=== PATIENT | male | born 1975 | race Caucasian/White ===

== ENCOUNTER 2017-03-19 12:25 | Emergency (ER) | payer BC ==
--- NOTE | 2017-03-19 12:30 | ED ---
General Adult HPI - General Stated complaint: Back Pain Time Seen by Provider: 03/19/17 12:27 Source: RN notes reviewed, old records reviewed - History of Present Illness Initial comments: This is a 41-year-old male here for evaluation of back injury. Patient had no traumatic back injury but is doing with severe back pain for a few days now. 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 No reported medical history. Patient states that he had some back pain while wearing some gear but 4 days ago the pain was worse for 2 days with the primary can walk. Patient denies loss of bowel or bladder, is able to bear his weight. Pain with range of motion - Related Data Previous Rx's Medication Instructions Recorded Hydrocodone/Acetaminophen [[place] 1 each PO Q6HR PRN #25 tab 04/23/15 5-325] Allergies Allergy/AdvReac Type Severity Reaction Status Date / Time No Known Allergies Allergy Verified 04/23/15 09:24 Review of Systems ROS Statement: Those systems with pertinent positive or pertinent negative responses have been documented in the HPI. ROS Other: All systems not noted in ROS Statement are negative. Past Medical History Past Medical History: No Reported History History of Any Multi-Drug Resistant Organisms: None Reported Past Surgical History: Orthopedic Surgery Past Psychological History: No Psychological Hx Reported Smoking Status: Former smoker Past Alcohol Use History: None Reported Past Drug Use History: None Reported General Exam General appearance: alert, in no apparent distress Head exam: Present: atraumatic, normocephalic, normal inspection Eye exam: Present: normal appearance, PERRL, EOMI. Absent: scleral icterus, conjunctival injection, periorbital swelling ENT exam: Present: normal exam, mucous membranes moist Neck exam: Present: normal inspection. Absent: tenderness, meningismus, lymphadenopathy Respiratory exam: Present: normal lung sounds bilaterally. Absent: respiratory distress, wheezes, rales, rhonchi, stridor Cardiovascular Exam: Present: regular rate, normal rhythm, normal heart sounds. Absent: systolic murmur, diastolic murmur, rubs, gallop, clicks GI/Abdominal exam: Present: soft, normal bowel sounds. Absent: distended, tenderness, guarding, rebound, rigid Extremities exam: Present: normal inspection, full ROM, normal capillary refill. Absent: tenderness, pedal edema, joint swelling, calf tenderness Back exam: Present: normal inspection, other (Midline tenderness around L5, decreased range of motion, right sacroiliac stock) Neurological exam: Present: alert, oriented X3, CN II-XII intact Psychiatric exam: Present: normal affect, normal mood Skin exam: Present: warm, dry, intact, normal color. Absent: rash Course Vital Signs 03/19/17 12:28 Temperature 100 F H Pulse Rate 98 Respiratory 18 Rate Blood Pressure 133/59 O2 Sat by Pulse 93 L Oximetry - Reevaluation(s) Reevaluation #1: 03/19/17 13:22 Patient's pain this time is improved greatly, able to ambulate Medical Decision Making - Medical Decision Making 41 male here for evaluation of back pain, musculoskeletal back pain with history of back disease. Degenerative disc disease. Patient will follow-up with orthopedics as directed Disposition Clinical Impression: Strain of lumbar region, Sciatica, Degeneration of intervertebral disc Disposition: HOME SELF-CARE Condition: Good Instructions: Acute Low Back Pain (ED), Chronic Back Pain (ED) Referrals: Jillian Sanchez DO [Doctor of Osteopathic Medicine] - 1-2 days
[2017-03-19 12:33] VITALS: RESP 18
[2017-03-19] MEDS ORDERED: DIAZEPAM 5 MG TAB PO STA (12:42)
[2017-03-19] MEDS ORDERED: HYDROcodone/APAP 5-325MG 1 EACH TAB PO STA (12:42)
[2017-03-19] MEDS ORDERED: KETOROLAC 60 MG/2 ML VIAL IM STA (12:42)
[2017-03-19] MEDS ORDERED: predniSONE 20 MG TAB PO STA (12:43)
--- NOTE | 2017-03-19 13:00 | XR ---
EXAM TYPE: LUMBAR SPINE X RAY SERIES COMPARISON: NONE HISTORY: 08/06/2016 TECHNIQUE: 4 views are submitted. FINDINGS: Alignment is anatomic. The pedicles are intact. The transverse processes are intact. There is no spon dylolysis or spondylolisthesis. Hypertrophic spurs are seen at L4 with facet arthropathy L4- L5 and L 5-S1. Mild degenerative disc disease L5-S1. IMPRESSION: 1. Mild degenerative disc disease L5-S1 with hypertrophic changes. 2. Facet arthropathy. Findings stable previous. Consider follow-up MRI.
[2017-03-19] MEDS ORDERED: HYDROmorphone 2 MG/ML 1 ML SYRINGE IM STA (13:25)
[2017-03-19 13:48] VITALS: BP 132/63; PULSE 92; TEMP 99.2
== END 2017-03-19 13:49 | disposition home or self-care (01) ==
LOC: EC 12:25
DX: S39.012A Strain of muscle, fascia and tendon of lower back, initial encounter (principal); M51.36 Other intervertebral disc degeneration, lumbar region; Z87.891 Personal history of nicotine dependence; X58.XXXA Exposure to other specified factors, initial encounter
CPT/HCPCS: 72110; 99284; 96372 ×2; J1170; J1885; J7512

== ENCOUNTER → 2023-07-09 | Outpatient (CLI) | payer BC ==
--- NOTE | 2023-07-10 10:06 | CT ---
EXAMINATION TYPE: CT ChestAbdPelvis w con DATE OF EXAM: 07/09/2023 COMPARISON: None HISTORY: Diagnosed with neoplasm of rectum several weeks ago. Observe for mets CT DLP: 2025.70 mGycm Automated exposure control for dose reduction was used. CONTRAST: CT scan of the chest, abdomen and pelvis is performed with Oral Contrast and with IV Contrast, patien t injected with 100 mL of Isovue 300. FINDINGS: LUNGS: Linear subsegmental changes are seen in the left upper lobe mass typical of scar or atelectasi s. There is no evidence of consolidative pneumonia. No pneumothorax or pleural effusion. No sizable p ulmonary nodule.. There is no pleural effusion or pneumothorax seen. The tracheobronchial tree is patent. MEDIASTINUM: There are no greater than 1 cm hilar or mediastinal lymph nodes. No pericardial effusi on is seen. There is a small hiatal hernia. OTHER: No additional significant abnormality is seen. LIVER/GB: Correlate for hepatic steatosis. PANCREAS: Within the pancreatic body on image 60 series 3 there is a hypodense lesion. Recommend MRI of the abdomen measures 8.5 mm is noted and coronal image 41. SPLEEN: No significant abnormality is seen. ADRENALS: No significant abnormality is seen. KIDNEYS: No hydronephrosis. Subcentimeter hypodensity left mid to lower pole renal cortex too small t o characterize. BOWEL: Mild wall thickening in the rectum may correspond to the patient's reported history of rectal cancer. Appendix normal. No evidence of bowel obstruction. REPRODUCTIVE ORGANS: Prostate gland is enlarged. LYMPH NODES: No greater than 1 cm abdominal or pelvic lymph nodes are appreciated. OSSEOUS STRUCTURES: Hypertrophic and degenerative changes of the spine right paracentral disc bulging L5-S1. OTHER: Aorta of normal caliber. Prostate gland appears enlarged. IMPRESSION: 1. Mild rectal wall thickening likely corresponds to the patient's history of rectal neoplasm. No pat hologic adenopathy. No evidence of intrathoracic metastases. 2. There is an 8.5 mm pancreatic body lesion too small to characterize. Recommend MRI of the pancreas \abdomen for further evaluation
== END | disposition home or self-care (01) ==
LOC: RADCTMAIN 14:02
PROVIDERS: ATTEND Surgery
DX: C20 Malignant neoplasm of rectum (principal); K86.89 Other specified diseases of pancreas; K62.89 Other specified diseases of anus and rectum
CPT/HCPCS: 71260; 74177; Q9967

== ENCOUNTER → 2023-07-22 | Outpatient (CLI) | payer BC | END | disposition home or self-care (01) | LOC: LABWHC1 12:33 | PROVIDERS: ATTEND Surgery | DX: C20 Malignant neoplasm of rectum (principal) | CPT/HCPCS: 36415; 82378 ==

== ENCOUNTER → 2023-07-31 | Outpatient (CLI) | payer BC ==
--- NOTE | 2023-07-31 12:20 | P.SLEEP ---
History of Present Illness DATE: 07/31/2023 CONSULTATION/NEW PATIENT EVALUATION HISTORY OF PRESENT ILLNESS/SLEEP-WAKE EVALUATION: 48-year-old gentleman had been evaluated in the sleep center for possible obstructive sleep apnea hypopnea syndrome. SLEEP SCHEDULE: Usually sleep schedule from 11 AM to 4 PM on weekdays and from 8 PM to 4 AM on weekend. Patient is working at shift leader. FALLING ASLEEP: Sometimes patient has problems with falling asleep. DURING SLEEP: Patient has loud snoring and witnessed episodes of stop breathing during the sleep by his . He wakes up from sleep with nocturia up to 3 times No history of hypnogogical hallucinations, sleep paralysis, or cataplexy. DURING THE DAY/WAKE STATE: During the day patient has difficulties to concentrate. [place] sleepiness scale is 4. Usually patient doesn't take any additional naps. PAST MEDICAL HISTORY: Hyperlipidemia, migraines. PAST SURGICAL HISTORY: Left shoulder surgery, vasectomy. MEDICATIONS: Atorvastatin 20 mg once a day, Tamsulosin 0.4 mg once a day. SOCIAL HISTORY Positive history of smoking for about 25 years presently half pack a day, no alcohol consumption at the present time. FAMILY HISTORY Liver problems, diabetes. REVIEW OF SYSTEMS: Loud snoring, multiple awakenings from sleep with nocturia. No fevers. No double vision. No recent chest pain. No shortness of breath. No abdominal pain. No bleeding episodes. No blood in urine. No seizure episodes. PHYSICAL EXAMINATION: GENERAL: A pleasant patient without any distress. VITAL SIGNS: BP 125/82 , HR 76 , RR 12 , weight 230.8 pounds, height 5 foot 9 inches, body mass index 33.9 . HEENT: PERRLA, EOMI. Evaluation of oropharynx showed tongue protrudes midline, low position of soft palate Mallampati 4. NECK: Supple. No JVD. Thyroid is not palpable. 17 inches in circumference. LUNGS: Clear to percussion and to auscultation. Good air exchange. No wheezing or rhonchi. HEART: S1, S2 regular. No murmurs, gallops or rubs. ABDOMEN: Soft and nontender. Bowel sounds are present. No organomegaly appreciated. EXTREMITIES: No clubbing or cyanosis. BARTENDER SERVER: Awake, alert, and oriented x3. Cranial nerves 2 to 7 intact. There is no fasciculation or atrophy noted. No focal deficits observed. ASSESSMENT: 1. Loud snoring, witnessed episodes of stop breathing during the sleep, extremely low position of soft palate Mallampati 4, wide neck 17 inches in circumference. Obstructive sleep apnea-hypopnea syndrome. 2. Mild obesity body mass index 33.9. 3. Hyperlipidemia. 4. BPH. 5 History of migraines. 6 . Status post left shoulder surgery. 7. Status post vasectomy. PLAN: 1. Home sleep apnea test for evaluation of patient's breathing during sleep. 2. CPAP/BiPAP titration if sleep study confirms obstructive sleep apnea- hypopnea syndrome. 3. Preferable position during sleep on the side. 4. No driving if patient feels any sleepiness. Patient is aware of civil and criminal liability for unsafe driving. 5. Sleep hygiene with regular sleep time for at least 7.5-8 hours. 6. Watching and losing weight. Thank you very much for referring this patient for consultation. Sincerely, Kris Tiwari MD, PhD, FAASM. Diplomat of [employer], Sleep Medicine Board by [employer] Director Of Recruitment of [facility] [place] Past Medical History Past Medical History: No Reported History History of Any Multi-Drug Resistant Organisms: None Reported Past Surgical History: Orthopedic Surgery Past Psychological History: No Psychological Hx Reported Past Alcohol Use History: None Reported Past Drug Use History: None Reported Medications and Allergies Home Medications Medication Instructions Recorded Confirmed Type Hydrocodone/Acetaminophen [[place] 1 tab PO Q4HR PRN #30 tab 03/19/17 Rx 5-325] Naproxen [Naprosyn] 500 mg PO Q12HR #60 tab 03/19/17 Rx diazePAM [Valium] 5 mg PO HS #20 tab 03/19/17 Rx predniSONE 50 mg PO DAILY #5 tab 03/19/17 Rx Allergies Allergy/AdvReac Type Severity Reaction Status Date / Time No Known Allergies Allergy Verified 03/19/17 13:38 Sleep Note - Sleep Note Sleep Note: Temperature: Pulse Rate: Respiratory Rate: Blood Pressure: SpO2: Height: Weight: BMI: Neck Circumference:
== END ==
LOC: 3 N SLEEP 10:18
PROVIDERS: ATTEND Internal Medicine
DX: G47.33 Obstructive sleep apnea (adult) (pediatric) (principal); E66.9 Obesity, unspecified; E78.5 Hyperlipidemia, unspecified; N40.0 Benign prostatic hyperplasia without lower urinary tract symptoms; F17.210 Nicotine dependence, cigarettes, uncomplicated; Z86.69 Personal history of other diseases of the nervous system and sense organs; Z98.890 Other specified postprocedural states; Z90.89 Acquired absence of other organs; Z68.33 Body mass index [BMI] 33.0-33.9, adult
CPT/HCPCS: 99211

== ENCOUNTER → 2023-08-30 | Outpatient (CLI) | payer BC | LOC: 3 N SLEEP 11:16 | PROVIDERS: ATTEND Internal Medicine | DX: G47.33 Obstructive sleep apnea (adult) (pediatric) (principal); Z87.891 Personal history of nicotine dependence ==

== ENCOUNTER 2024-10-27 12:49 | Day surgery (SDC) | payer BC ==
[2024-10-21 15:30] VITALS: BMI 33.0
[2024-10-27 13:09] VITALS: TEMP 97.7
[2024-10-27] MEDS: LACTATED RINGERS 1,000 ML IV SCH (13:16)
[2024-10-27] MEDS: IV FLUID CONTINUATION 1,000 ML IV ONE (13:16)
[2024-10-27] MEDS ORDERED: PROPOFOL 10 MG/ML 20 ML VIAL IV ONE (13:20)
[2024-10-27] MEDS ORDERED: LIDOCAINE 1% INJ 10MG/ML (20 ML MDV) ONE (13:20)
--- NOTE | 2024-10-27 13:27 | P.GSHP ---
History of Present Illness H&P Date: 10/27/24 Chief Complaint: History of colon cancer 49-year-old male here for colonoscopy. Last colonoscopy was a bit over a year ago. He was found to have a malignant polyp in the rectosigmoid. Underwent laparoscopic resection at [facility]. Doing well since then. Here today for follow-up recheck. Past Medical History Past Medical History: Cancer, Hyperlipidemia Additional Past Medical History / Comment(s): migraines, colon cancer History of Any Multi-Drug Resistant Organisms: None Reported Past Surgical History: Bowel Resection, Orthopedic Surgery Additional Past Surgical History / Comment(s): colonoscopy, polyps, Past Anesthesia/Blood Transfusion Reactions: No Reported Reaction Additional Past Anesthesia/Blood Transfusion Reaction / Comment(s): no blood transfusion Smoking Status: Current every day smoker - Past Family History Mother Family Medical History: Cancer Additional Family Medical History / Comment(s): breast Medications and Allergies Home Medications Medication Instructions Recorded Confirmed Type Atorvastatin [Lipitor] 20 mg PO HS 10/21/24 10/27/24 History Rimegepant Sulfate [Nurtec Odt] 75 mg PO DIRECTED 10/21/24 10/27/24 History Tamsulosin [Flomax] 0.4 mg PO HS 10/21/24 10/27/24 History Varenicline [Chantix Starter Pack] 1 tab PO DIRECTED 10/21/24 10/27/24 History Allergies Allergy/AdvReac Type Severity Reaction Status Date / Time No Known Allergies Allergy Verified 10/27/24 13:07 Surgical - Exam Vital Signs Temp Pulse Resp BP Pulse Ox 97.7 F 74 18 159/59 97 10/27/24 13:08 10/27/24 13:08 10/27/24 13:08 10/27/24 13:08 10/27/24 13:08 Physical exam: General: Well-developed, well-nourished HEENT: Normocephalic, sclerae nonicteric Abdomen: Nontender, nondistended Extremities: No edema Neuro: Alert and oriented Assessment and Plan (1) History of colon cancer Narrative/Plan: Will proceed with colonoscopy at this time. Current Visit: Yes Status: Acute Code(s): Z85.038 - PERSONAL HISTORY OF MALIGNANT NEOPLASM OF LARGE INTESTINE SNOMED Code(s): 478770632
--- NOTE | 2024-10-27 13:38 | P.PCN ---
Date of Procedure: 10/27/24 Procedure(s) Performed: PREOPERATIVE DIAGNOSIS: History of colon cancer POSTOPERATIVE DIAGNOSIS: Normal exam however poor prep PROCEDURE: Colonoscopy ANESTHESIA: MAC SURGEON: Roland Workman M.D. SPECIMENS: None ENDOSCOPIC PROCEDURE: The patient was placed on the endoscopy table in the left decubitus position. The Olympus colonoscope was inserted into the anus and passed under direct visualization to the base of the cecum. The appendiceal orifice was visualized. From that point the scope was slowly withdrawn inspecting all surfaces carefully. There were no neoplastic inflammatory or polypoid lesions throughout the cecum, ascending, transverse, descending, and rectum. The colorectal anastomosis was widely patent. The patient's prep was poor with some solid and liquid stool throughout. Grossly visualization was limited. There was no visible diverticulosis noted. Digital rectal examination was normal. The patient was taken to the recovery room in stable condition per anesthesia guidelines. RECOMMENDATIONS: Resume diet. Repeat colonoscopy 1 year given the patient's poor prep and personal history of colon cancer.
[2024-10-27 13:53] VITALS: PULSE 83; RESP 16
[2024-10-27 13:58] VITALS: BP 99/64
== END 2024-10-27 14:17 | disposition home or self-care (01) ==
LOC: ORWHC2ENDO 12:49
PROVIDERS: ATTEND Surgery
DX: Z08 Encounter for follow-up examination after completed treatment for malignant neoplasm (principal); Z85.038 Personal history of other malignant neoplasm of large intestine; Z90.49 Acquired absence of other specified parts of digestive tract; E78.5 Hyperlipidemia, unspecified; G43.909 Migraine, unspecified, not intractable, without status migrainosus; F17.210 Nicotine dependence, cigarettes, uncomplicated; Z98.890 Other specified postprocedural states; Z79.899 Other long term (current) drug therapy; Z98.52 Vasectomy status
CPT/HCPCS: 45378; J2003; J2704

== ENCOUNTER → 2025-01-28 | Outpatient (CLI) | payer BC ==
[2025-01-28 17:19] VITALS: BP 122/77; PULSE 70; RESP 16; TEMP 98
--- NOTE | 2025-01-28 18:03 | P.PROGSL ---
Subjective DATE: 01/28/2025 FOLLOW UP VISIT. Patient with obstructive sleep apnea hypopnea syndrome return to sleep center for follow-up visit. Information from previous visit have been reviewed. This is first visit after patient started to use CPAP equipment. Patient is using PAP equipment most of the nights. Presently patient has discomfort in the nose secondary to irritation from nasal mask. [place] sleepiness scale is 7, which is in normal range. I checked information from PAP unit. PAP unit pressure 5-14 cm H2O. Leak is 1 l/m, which is in perfect range. Apnea Hypopnea Index is 2.1, which is normal. MEDICATIONS have been reviewed, please see below. During physical exam: GENERAL: A pleasant patient without any distress. VITAL SIGNS: Please see below, weight is 243 lbs. HEENT: PERRLA, EOMI.low position of soft palate, Mallapati 4 . NECK: Supple. No JVD. LUNGS: Clear to percussion and to auscultation. Good air exchange. No wheezing or rhonchi. HEART: S1, S2 regular. ABDOMEN: Soft and nontender.[] EXTREMITIES: No clubbing or cyanosis. FUR WEIGHER: Awake, alert, and oriented x3. No focal deficit. Impressions: 1. Obstructive sleep apnea-hypopnea syndrome. Patient demonstrated borderline compliance with treatment, benefiting from treatment. 2. Mild obesity, BMI 35.8. 3. Hyperlipidemia. 4. BPH. 5. History of migraines. 6. Status post left shoulder surgery. 7. Status post vasectomy. Plan: 1. Continue using PAP equipment every night for the whole night. We gave patient a AirTouch N20 medium nasal mask. 2. Sleep hygiene with regular time in bed for at least 7.5-8 hours 3. PAP unit should stay lower then position of the head. 4. Advised patient to remove all remaining water from humidifier canister daily and make it dry after each usage. Refill canister with fresh distilled water before each usage. 5. Watching and losing weight. 6. Precautions related to driving. No driving if feel any sleepiness. 7. I will maintain prescription for PAP supplies including mask, tube, filters. 8. Follow up visit in 8 months or earlier if patient has any problems. Thank you very much for allowing me to participate in the management of your patient. Kris Tiwari MD, PhD, FAASM. Diplomat of [place] [employer], Sleep Medicine Board by [place] [employer] Shipping And Receiving Assistant of [facility] [place] Objective - Vital Signs Vital Signs: Vital Signs Temp 98 F 01/28/25 17:19 Pulse 70 01/28/25 17:19 Resp 16 01/28/25 17:19 BP 122/77 01/28/25 17:19 Pulse Ox 97 01/28/25 17:19 FiO2 Home Medications: Home Medications Medication Instructions Recorded Confirmed Type Atorvastatin [Lipitor] 20 mg PO HS 10/21/24 01/28/25 History Rimegepant Sulfate [Nurtec Odt] 75 mg PO DIRECTED 10/21/24 01/28/25 History Tamsulosin [Flomax] 0.4 mg PO HS 10/21/24 01/28/25 History Varenicline [Chantix Starter Pack] 1 tab PO DIRECTED 10/21/24 01/28/25 History Rizatriptan Benzoate 10 mg PO DAILY 01/28/25 01/28/25 History
== END ==
LOC: 3 N SLEEP 16:42
PROVIDERS: ATTEND Internal Medicine
DX: G47.33 Obstructive sleep apnea (adult) (pediatric) (principal); E66.9 Obesity, unspecified; E78.5 Hyperlipidemia, unspecified; N40.0 Benign prostatic hyperplasia without lower urinary tract symptoms; Z68.35 Body mass index [BMI] 35.0-35.9, adult; Z98.52 Vasectomy status; Z98.890 Other specified postprocedural states; Z87.891 Personal history of nicotine dependence
CPT/HCPCS: 99212

== ENCOUNTER → 2025-02-19 | Outpatient (CLI) | payer BC ==
--- NOTE | 2025-02-19 09:12 | XR ---
EXAMINATION TYPE: XR knee 4V RT DATE OF EXAM: 02/19/2025 8:59 AM INDICATION: Patient age:Male; 49 years old; Reason for study: M25.561 PAIN IN RIGHT KNEE; PHH. pain COMPARISON: None. TECHNIQUE: The Right knee(s) was examined in Frontal, lateral , sunrise, and oblique projections. FINDINGS: No evidence of any acute osseous pathology, soft tissue swelling, or joint effusion is no wes. No joint space narrowing or marginal osteophytosis. Incidental fabella. IMPRESSION: No acute osseous pathology. [facility], , 02/19/2025 9:10 AM
== END | disposition home or self-care (01) ==
LOC: RADXRMAIN 08:43
PROVIDERS: ATTEND Family Medicine
DX: M25.561 Pain in right knee (principal)

== ENCOUNTER → 2025-06-02 | Outpatient (CLI) | payer BC ==
--- NOTE | 2025-06-02 10:52 | CTL ---
EXAMINATION TYPE: CT Low Dose Lung DATE OF EXAM: 06/02/2025 10:23 AM COMPARISON: 07/09/2023. CLINICAL INDICATION: Male, 49 years old with history of Z12.2 screening for neoplasm; former smoker , 1 pack a day for 26 years, history of tobacco use. TECHNIQUE: Multiple axial non-contrast scans were obtained from approximately the lung apices through the upper abdomen. Coronal and sagittal reformatted images were obtained. Low dose technique was uti lized. MIP were created on a separate workstation and submitted for review. CT DLP: 135.80 mGycm, Automated exposure control for dose reduction was used. CT Contrast: Contrast used: None Oral contrast used: None FINDINGS: Lack of intravenous contrast and low dose technique limits the evaluation of the vascular and soft ti ssue structures. LUNGS: No evidence of pulmonary fibrosis. No evidence of focal consolidation, pneumothorax or pleural effusion. Centrilobular emphysema changes. Streaky scarring seen in the upper lung. Nodules: RUL: None. RML: None. RLL: intrafissural lymph node series 3 image 151 measuring 4 mm.. JAIME: None. LLL: None. AIRWAY: Patent and unremarkable. HEART: Size within normal limits. No significant coronary artery calcifications. MEDIASTINUM: No gross evidence of adenopathy. VASCULATURE: No aortic aneurysm. MUSCULOSKELETAL: Mild disc degeneration changes are present throughout the thoracolumbar spine. SOFT TISSUES/LYMPH NODES: Unremarkable. LOWER NECK: No significant findings. UPPER ABDOMEN: No significant findings. Stable morphology to the pancreas. IMPRESSION: 1. No clinically significant pulmonary nodules. 2. Mild emphysema. 3. Stable pancreatic body morphology. CT LUNG RAD AND CT CHEST RECOMMENDATION: Lung-Rad 2 Benign Appearance or Behavior: Continue annual sc reening with LDCT in 12 months. S Modifier (other clinically significant findings): None Recommend smoking cessation (if current smoker), or continuation of smoking cessation (if prior smoke r). Annual screening for lung cancer with low-dose computed tomography is recommended in adults ages 55 to 77 years who have a 30 pack-year smoking history and currently smoke or have quit within the pa st 15 years. Screening should be discontinued once a person has not smoked for 15 years or develops a health problem that substantially limits life expectancy or the ability or willingness to have curat indira lung surgery. Lung rads 2021 [email or web address] [facility], , 06/02/2025 10:50 AM
== END | disposition home or self-care (01) ==
LOC: RADCTMAIN 10:03
PROVIDERS: ATTEND Family Medicine
DX: Z12.2 Encounter for screening for malignant neoplasm of respiratory organs (principal); J43.2 Centrilobular emphysema; Z87.891 Personal history of nicotine dependence
CPT/HCPCS: 71271